=== PATIENT | female | born 1960 | race Caucasian/White ===

== ENCOUNTER 2018-07-27 21:43 | Emergency (ER) | payer SELFPAY ==
[~2018-07-27] VITALS: Ht 149.9 cm; Wt 64.5 kg
[2018-07-27] MEDS ORDERED: LEVO50 PO (21:55)
[2018-07-27] MEDS ORDERED: ATOR10TA84 PO (21:55)
[2018-07-28] MEDS ORDERED: ONDANSETRON HCL 4 MG TABLET PO ONE (00:15)
[2018-07-28] MEDS ORDERED: LORazepam 1 MG TABLET PO ONE (00:15)
[2018-07-28 00:29] VITALS: BP 129/68
== END 2018-07-28 00:35 | disposition home or self-care (01) ==
LOC: EMS 21:44
DX: F41.9 Anxiety disorder, unspecified (principal); E03.9 Hypothyroidism, unspecified; E78.00 Pure hypercholesterolemia, unspecified
CPT/HCPCS: 93005; 99284; Q0162